=== PATIENT | female | born 1985 | race Caucasian/White ===

== ENCOUNTER 2017-09-13 10:41 | Day surgery (SDC) | payer OTHER ==
[~2017-09-13] VITALS: Ht 160 cm; Wt 68.0 kg
[2017-09-13 11:03] VITALS: BP 126/93
[2017-09-13 16:42] VITALS: BP 118/70
== END 2017-09-13 16:35 | disposition home or self-care (01) ==
LOC: DS 10:41
PROVIDERS: Surgery
PROC: 0FT44ZZ Resection of Gallbladder, Percutaneous Endoscopic Approach (ICD-10-PCS; principal; 2017-09-13 12:00)
DX: K80.20 Calculus of gallbladder without cholecystitis without obstruction (principal); Z68.29 Body mass index [BMI] 29.0-29.9, adult
CPT/HCPCS: J0690; J1170; J2405; J2704; J2710; J3010; J3490; J7120

== ENCOUNTER 2017-09-23 10:58 | Emergency (ER) | payer OTHER ==
[~2017-09-23] VITALS: Ht 157.5 cm; Wt 76.3 kg
[2017-09-23 11:08] VITALS: BP 111/67; Ht 157.5 cm; Wt 76.3 kg
== END 2017-09-23 12:00 | disposition home or self-care (01) ==
LOC: ED 10:58
DX: Z48.02 Encounter for removal of sutures (principal); Z90.49 Acquired absence of other specified parts of digestive tract; Z91.040 Latex allergy status